=== PATIENT | male | born 1960 | race Caucasian/White ===

== ENCOUNTER 2021-01-03 13:32 | Emergency (ER) | payer MEDICARE, MEDICAID, SELFPAY ==
[2021-01-03 13:56] VITALS: BP 142/88; PULSE 77; RESP 20; TEMP 36.9; O2SAT 98
[2021-01-03] MEDS: LORazepam (*CRX) 0.5 MG TABLET 2 MG PO (14:20)
--- NOTE | 2021-01-03 15:31 | ED.GENADULT ---
HPI - General Adult General Chief complaint: Anxiety Stated complaint: Anxiety Attack Source: patient Mode of arrival: wheelchair Limitations: no limitations History of Present Illness HPI narrative: Tyree is a 60M with a PMH of severe OA, obesity, anxiety and depression that presented to the ED with anxiety. He was traveling home from visiting his son when he started to get very anxious. His might started to race, he got jittery, and his heart felt like it was starting to race. He normally takes lorazepam 2mg PRN for anxiety attacks but left his meds at home. He is very scarred states that he really needs something for this. Related Data Home Medications Medication Instructions Recorded Confirmed hydromorphone 4 mg PO Q4H PRN 01/03/21 01/03/21 lorazepam 1 mg PO BID PRN 01/03/21 01/03/21 olanzapine 20 mg PO DAILY 01/03/21 01/03/21 pramipexole 0.25 mg PO BID 01/03/21 01/03/21 trazodone 300 mg PO HS 01/03/21 01/03/21 Allergies Allergy/AdvReac Type Severity Reaction Status Date / Time Penicillins Allergy Unknown Verified 01/03/21 13:54 vancomycin Allergy Unknown Verified 01/03/21 13:54 Review of Systems Constitutional: Constitutional: Reports no additional constitutional complaints Eyes: Eyes: Reports no additional eye complaints ENT: Reports system reviewed and no additional complaints, except as documented Cardiovascular: Cardiovascular: Reports no additional cardiovascular complaints Respiratory: Respiratory: Reports no additional respiratory complaints Gastrointestinal: Gastrointestinal: Reports no additional gastrointestinal complaints Genitourinary: Genitourinary: Reports no additional male genitourinary complaints Musculoskeletal: Musculoskeletal: Reports no additional musculoskeletal complaints Integumentary/Breasts: Skin/Breast: Reports system reviewed and no additional complaints, except as docu Neurologic: Reports system reviewed and no additional complaints, except as documented Psychiatric: Psychiatric: Reports as per HPI, Reports anxiety, Reports depression, Denies homicidal ideation and Denies suicidal ideation Endocrine: Endocrine: Reports no additional endocrine complaints Hematologic/Lymphatic: Hematologic/Lymphatic: Reports no additional hematologic/lymphatic complaints Allergic/Immunologic: Allergic/Immunologic: Reports no additional allergic/immunologic complaints PMFSH Social History Social History Substance use type: does not use Exam Const: General: no acute distress and alert Orientation/consciousness: patient oriented x3 Limitations: No altered mental status HENMT: Head: normal to inspection Mouth: Yes Normal oral and palatal mucosa present Eyes: Conjunctivae: conjunctivae normal Pupils: Equal, round and reactive pupils present Neck: Neck: normal visual inspection Chest: Chest palpation & inspection: normal inspection of the chest Resp: Effort & Inspection: normal respiratory effort Auscultation: clear to auscultation bilaterally Cardio: Rate: regular rate Rhythm: regular rhythm GI: Inspection: non-distended GI Palp: Yes Soft to palpation, No Tenderness to palpation present (GI) and No Guarding due to palpation present (GI) Skin: General skin exam: normal color Rashes: no rashes Neuro: General: patient oriented x3, moves all extremities and CN's II-XI intact bilaterally Extrem: General: normal to inspection Psych: Appearance: well kempt Affect: Anxious affect present Attitude: cooperative Other: Racing thoughts Course Course Emergency Course: Tyree was given 2mg of ativan PO. He left AMA before I could leave another critical patients room to reevaluate him. Vital Signs Vital signs: Vital Signs Temperature 98.4 F 01/03/21 13:56 Pulse Rate 77 01/03/21 13:56 Respiratory Rate 20 01/03/21 13:56 Blood Pressure 142/88 H 01/03/21 13:56 Pulse Oximetry 98 01/03/21 13:56 T
== END 2021-01-03 14:47 | disposition left against medical advice (07) ==
PROVIDERS: Emergency Provider Family Medicine
DX: F41.9 Anxiety disorder, unspecified (principal)
CPT/HCPCS: 99282; 99283; A9270

== ENCOUNTER 2023-03-31 13:33 | Emergency (ER) | payer MEDICARE, MEDICAID, SELFPAY ==
--- NOTE | ~2023-03-31 | CT_ITS ---
EXAMINATION: CT cervical spine wo con DATE: 03/31/2023 15:03 INDICATION: Neck pain. Status post fall. TECHNIQUE: Computed tomography (CT) of the cervical spine was performed without intravenous contrast. The dose-length product was 572 mGy-cm. Automated exposure control and iterative reconstruction tech nique were employed. COMPARISON: None FINDINGS: Craniovertebral junction is normal. Odontoid process is normal. There is loss of disc height at C3-4 through 6 and T2-3. There is complete loss of disc space at C3-4 and C7-T1. There is demineralization at C7-T1, nonspecific. There is loss of vertebral body height a t multiple levels which appears chronic. There is dextroscoliosis. There is advanced multilevel uncin ate and facet hypertrophy. No significant paraspinal soft tissue abnormality. IMPRESSION: 1. No acute fracture. 2: Severe cervical spondylosis Reviewed, dictated and finalized at location A.
--- NOTE | ~2023-03-31 | CT_ITS ---
EXAMINATION: CT brain wo con DATE: 03/31/2023 15:02 INDICATION: Diffuse body pain post fall TECHNIQUE: Computed tomography (CT) of the head was performed without intravenous contrast. Sagittal and coronal reconstructions were performed. The mA was adjusted according to patient size. Iterative reconstruction technique was employed. The dose-length product was 756.67 mGy-cm. COMPARISON: Maxillofacial CT dated 05/16/2010 FINDINGS: Evaluation mildly limited by some motion and streak artifact on both the initial and repeat images. N o acute fracture. There is chronic herniation of a small amount of fat through chronic defect along t he medial inferior wall of the left orbit likely sequela of old trauma. Additional old blowout fractu re along the medial wall of the left orbit. No acute intracranial hemorrhage, acute infarction or abn ormal extra axial fluid collection. Ventricles are normal and symmetric. No mass/mass effect. There i s some mucosal thickening in the right maxillary sinus. Changes of bilateral intraocular lens replace ment. Mastoid air cells and middle ear cavities are clear. IMPRESSION: 1. No acute fracture or acute intracranial process. Reviewed, dictated and finalized at location A.
--- NOTE | ~2023-03-31 | CT_ITS ---
EXAMINATION: CT chest abdomen pelvis wo con DATE: 03/31/2023 15:33 CDT INDICATION: Status post fall. Chest and abdomen pain. TECHNIQUE: Computed tomography (CT) of the chest, abdomen, and pelvis was performed without intraveno us contrast. The dose-length product was 1897.78 mGy-cm. Automated exposure control and iterative rec onstruction technique were employed. COMPARISON: None FINDINGS: CHEST CT: There is dependent atelectasis. No pneumothorax. No endobronchial lesions. Evaluation for small pulmo nary nodules limited by motion artifact. There is atherosclerosis of the aorta. Heart size normal. No significant pleural or pericardial effusion. No thoracic lymphadenopathy. There is an IVC filter pre sent. There are bilateral hip arthroplasties. ABDOMEN/PELVIS CT: The liver, spleen, pancreas, adrenal glands are unremarkable. There is an ill-defined hypodense lesio n posterior margin of the right kidney, evaluation limited by motion artifact. This is most likely be nign. There is a punctate 2 mm nonobstructing left renal stone. Nonobstructive bowel gas pattern. Col onic diverticulosis without evidence for diverticulitis. Moderate multilevel thoracic and lumbar spon dylosis. No acute vertebral fracture is seen. IMPRESSION: 1. No acute abnormality of the chest, abdomen or pelvis. Reviewed, dictated and finalized at location A.
[2023-03-31 13:45] VITALS: BP 179/114; PULSE 94; RESP 18; TEMP 36.9; O2SAT 96
[2023-03-31] MEDS: lisinopriL 10 MG TABLET 20 MG PO (14:20)
[2023-03-31] MEDS: methocarbamoL 500 MG TABLET 1000 MG PO (14:20)
[2023-03-31] MEDS: ACETAMINOPHEN 500 MG TABLET 1000 MG PO (14:21)
[2023-03-31] MEDS: KETOROLAC (*BKC) 60 MG/2 ML VIAL IM (14:21)
--- NOTE | 2023-03-31 14:39 | PC.NURSE ---
PT IS IN RADIOLOGY AT THIS TIME. PT HAD REFUSED TO GO UNTIL MEDICATED. PT STATES TORADOL DOES NOT WORK FOR ME, BUT I WILL TAKE IT. PT IS CALM, NAD NOTED WHILE LYING ON STRETCHER IN EXAM ROOM. PT WAS PLACED INTO A GOWN UPON ARRIVAL, ONLY WOUND NOTED WAS AN ABRASION TO RT KNEE, BLEEDING CONTROLLED AND IT WAS CLEANED.
--- NOTE | 2023-03-31 14:44 | ED.GENADULT ---
HPI - General Adult General Chief complaint: Fall Stated complaint: fall; left side pain Time Seen by Provider: 03/31/23 13:36 History of Present Illness HPI narrative: 62yo man with chronic PO dilaudid, percocet, and ativan use at home, who is not taking his prescribed lisinopril and apixaban (used to take but stopped over a year ago), brought by EMS from [place], [place] per patient request, bypassing several EDs on the way, with chief complaint of pain all over the left side of his head, neck, shoulder, arm, upper and lower back, buttock, thigh, knee, and foot, following [facility] where he tripped over his chair and landed on his left side. Exam shows no sign of traumatic injury other than a knee abrasion on the right side. Pt endorses taking Percocet, Ativan, and Dilaudid all this morning but states fall occurred at 12:30 pm. No focal numbness or weakness. Answers are slow and not readily forthcoming. Related Data Home Medications Medication Instructions Recorded Confirmed hydromorphone 4 mg tablet 4 mg PO Q4H PRN Pain 01/03/21 03/31/23 olanzapine 20 mg tablet 20 mg PO DAILY 01/03/21 03/31/23 pramipexole 0.25 mg tablet 0.25 mg PO BID 01/03/21 03/31/23 albuterol sulfate 90 mcg/actuation 2 puff inhalation PRN PRN Wheezing 03/31/23 03/31/23 aerosol inhaler (Ventolin HFA) apixaban 5 mg (74 tabs) tablets in 5 mg PO DIRECTED 03/31/23 03/31/23 a dose pack (Eliquis DVT-PE Treat 30D Start) cyclobenzaprine 10 mg tablet 10 mg PO TID 03/31/23 03/31/23 lisinopril 20 mg tablet 20 mg PO DAILY 03/31/23 03/31/23 Allergies Allergy/AdvReac Type Severity Reaction Status Date / Time Penicillins Allergy Unknown Verified 03/31/23 14:06 vancomycin Allergy Unknown Verified 03/31/23 14:06 Review of Systems Review of Systems: All systems reviewed & are unremarkable except as noted in HPI and below Constitutional: Constitutional: Denies chills and Denies fever(s) ENT: Denies dysphagia Cardiovascular: Cardiovascular: Denies chest pain Respiratory: Respiratory: Denies dyspnea PMFSH Social History Social History Substance use type: does not use Exam Narrative: slow and hesitant answers, unclear explanations for mechanism of injury, give the impression of being grossly fabricated Const: General: healthy appearing and no acute distress Nutritional Appearance: well nourished and obese HENMT: Other: no external sign of trauma Eyes: Conjunctivae: conjunctivae normal EOM: EOMs intact bilaterally Neck: Other: supple Resp: Effort & Inspection: normal respiratory effort and not labored Auscultation: clear to auscultation bilaterally Cardio: Rate: regular rate Rhythm: regular rhythm Heart sounds: no murmurs GI: Inspection: non-distended GI Palp: Yes Soft to palpation and No Tenderness to palpation present (GI) Back/Spine/Pelvis: Other: no midline spinal tenderness or impaired ROM Skin: General skin exam: normal color, no jaundice and no pallor Neuro: General: patient oriented x3, moves all extremities, no focal motor deficits and CN's II-XI intact bilaterally Course Course Emergency Course: Patient persistently calling the nurses, well over two dozen times in the last hour. I have spoken with him numerous times. He is complaining of pain, asking repeatedly can't I have just one percocet. Eventually started saying he has anxiety and can I please have something like Ativan to calm me down. Told no repeatedly that these are controlled substances and addictive and he appears to be dependent upon them and does not have a justified indication for me to order these meds. Patient then started complaining of chest pain, asking can't I have something stronger for that...just one. Pt told no. EKG ordered demonstrating LAFB and LVH but no sign of acute ischemia. CTs all negative for traumatic injury, acute disease. Pt stable
--- NOTE | 2023-03-31 14:57 | PC.NURSE ---
PT HAS RETURNED FROM CT, REQUESTING PAIN MEDICATION. I NEED PAIN MEDICATION, I HURT REAL BAD. ERP IS NOTIFIED. WILL AWAIT FURTHER ORDERS. WILL CONTINUE TO MONITOR.
--- NOTE | 2023-03-31 15:01 | PC.NURSE ---
PT IS REQUESTING PAIN MEDICATION AT THIS TIME, ERP IS AT BEDSIDE. ERP EXPLAINS THE MEDICATIONS ARE ADDICTING. PT THEN REPLIES WITH HOW ABOUT A PERCOCET 5 THEN? ERP IS EDUCTING PT AT THIS TIME. WILL CONTINUE TO MONITOR. PT IS AWAITING RESULTS AT THIS TIME.
[2023-03-31 15:02] VITALS: BP 180/113; PULSE 78; RESP 18; O2SAT 100
--- NOTE | 2023-03-31 15:06 | PC.NURSE ---
PT IS AGAIN ON HIS CALL LIGHT REQUESTING PAIN MEDICATION. PT IS REPOSITIONED ON STRETCHER AT THIS TIME. ERP IS AWARE OF REQUEST. WILL CONTINUE TO MONITOR.
--- NOTE | 2023-03-31 15:17 | PC.NURSE ---
PT ESTHETICIAN/SKIN THERAPIST LIGHT AGAIN REQUESTING PAIN MEDICATION.
--- NOTE | 2023-03-31 15:25 | PC.NURSE ---
PT IS BLOCKER METAL BASE LIGHT, THIS TIME REPORTING AN ANXIETY ATTACK, STATING HIS BACK IS HURTING MAKING HIM ANXIOUS, HE NEEDS MEDICATION. ERP IS AWARE. PT IS NOW YELLING IN EXAM ROOM STATING I CANNOT HELP IT, I HURT, I JUST NEED 1 PERCOCET 5.
[2023-03-31 15:27] VITALS: BP 153/82; PULSE 80; RESP 18; O2SAT 98
--- NOTE | 2023-03-31 15:41 | PC.NURSE ---
PT IS SCREAMING IN ROOM, NOW REQUESTING SOMETHING FOR WITHDRAWS.
[2023-03-31] MEDS: ORPHENADRINE CITRATE 30 MG/ML 2 ML VIAL 60 MG IM (15:45)
--- NOTE | 2023-03-31 15:51 | ECG_ITS ---
Measurements Intervals [place] Rate: 85 P: 33 ME: 211 QRS: -54 QRSD: 117 T: 68 QT: 395 QTc: 471 Interpretive Statements SINUS RHYTHM WITH FIRST DEGREE AV BLOCK LEFT ANTERIOR FASCICULAR BLOCK [QRS AXIS <= -45, QR IN I, RS IN II] LEFT VENTRICULAR HYPERTROPHY AND ST-T CHANGE [VOLTAGE CRITERIA PLUS ST/T ABNORMALITY] NO PREVIOUS ECG AVAILABLE FOR COMPARISON Electronically Signed On 04-01-2023 11:15:27 CDT by Won Devries M.D.
--- NOTE | 2023-03-31 15:51 | PC.NURSE ---
PT IS YELLING IN EXAM ROOM REPORTING HE HAS NO RIDE HOME, HE WANTS TO BE ADMITTED. THAT HE IS NOW HAVING CP FROM LEFT CHEST ACROSS. ERP IS NOTIFIED. EKG IS ORDERED. WILL CONTINUE TO MONITOR.
[2023-03-31 16:27] VITALS: BP 172/96; PULSE 85; RESP 20; O2SAT 98
--- NOTE | 2023-03-31 16:42 | PC.NURSE ---
PT HAS BEEN DC, HOWEVER PT REPORTS HE DOES NOT HAVE A RIDE HOME. PT REPORTS HIS SON DOES NOT HAVE A WORKING PHONE OR CAR. ATTEMPTED TO CALL SON, HOWEVER THE PHONE NUMBER IS NOT A WORKING NUMBER. THIS RN CALLED [employer], HOWEVER PT DOES NOT HAVE MONEY FOR A CAB RIDE HOME. PT DOES NOT HAVE HIS MOTORIZED SCOOTER OR WALKER. WILL CONTINUE TO MONITOR.
--- NOTE | 2023-03-31 16:54 | PC.NURSE ---
PT REFUSED TO TAKE DC INSTRUCTIONS. DEMANDED TO BE DC TO WAITING ROOM IN . PT REPORTS HE HAS NO RIDE HOME.
== END 2023-03-31 16:40 | disposition home or self-care (01) ==
PROVIDERS: Emergency Provider Emergency Medicine
DX: R51.9 Headache, unspecified (principal); M54.2 Cervicalgia; M79.603 Pain in arm, unspecified; M54.50 Low back pain, unspecified; M79.659 Pain in unspecified thigh; M25.569 Pain in unspecified knee; M79.673 Pain in unspecified foot; Z79.891 Long term (current) use of opiate analgesic; Z79.01 Long term (current) use of anticoagulants; Z76.5 Malingerer [conscious simulation]; W01.0XXA Fall on same level from slipping, tripping and stumbling without subsequent striking against object, initial encounter
CPT/HCPCS: 70450; 71250; 72125; 74176; 93005; 96372; 99284; A9270; J1100; J1885; J2360